=== PATIENT | female | born 1960 | race African-American/Black ===

== ENCOUNTER 2016-10-10 19:19 | Emergency (ER) | payer OTHER ==
[~2016-10-10] VITALS: Ht 177.8 cm; Wt 102.0 kg
[~2016-10-10 19:19] MED LIST: Aleve PO; Aspirin E.C. PO; CRESTOR40 MG PO; Duragesic TD; Flexeril PO; GLUMETZA500 MG PO; Glucophage XR,Fortam PO; JANUVIA100 MG PO; LYRICA75 MG PO; MOBIC7.5 MG PO; NORCO 5/3251 TABLET PO; NUCYNTA50 MG PO; NexIUM PO; Roxicet,Percocet 5/3 PO
[2016-10-10 21:57] LABS: HEMATOCRIT 44.4 % (36.0-46.0); MCH 28.3 PG (29.0-34.0); MCHC 32.7 G/DL (30.0-36.0); MCV 86.5 FL (83-99); MEAN PLAT.VOLUME 9.6 uM^3 (9.5-12.4); PLATELET COUNT 227 K/uL (156-360); RBC DIS.WIDTH-CV 13.2 % (11.8-14.6); RBC DIS.WIDTH-SD 41.3 % (39-53); RED BLOOD COUNT 5.13 M/uL (3.80-5.20); WHITE BLOOD COUNT 6.2 K/uL (4.1-10.2)
[2016-10-10 22:11] LABS: CHLORIDE 106 mEq/L (99-109); POTASSIUM 4.2 mEq/L (3.7-5.4); SODIUM 139 mEq/L (136-147)
[2016-10-10 22:12] LABS: PROTHROMBIN TIME 10.3 (9.2-11.2); PTT 27.4 (25-32)
[2016-10-10 22:13] LABS: GLUCOSE 117 mg/dL (70-99)
[2016-10-10 22:14] LABS: ANION GAP 10 MEQ/L (2-14)
[2016-10-10 22:17] LABS: GFR ESTIMATE (CALCULATED) > 59 mL/min/
[2016-10-10 22:18] LABS: UREA NITROGEN (BUN) 15 mg/dL (9-23)
[2016-10-11 01:32] VITALS: BP 117/67
== END 2016-10-11 02:07 | disposition designated cancer center or children's hospital, planned readmission (85) ==
LOC: EME 19:19
PROVIDERS: Emergency Medicine
DX: T24.232A Burn of second degree of left lower leg, initial encounter (principal); T24.231A Burn of second degree of right lower leg, initial encounter; T31.10 Burns involving 10-19% of body surface with 0% to 9% third degree burns; X03.0XXA Exposure to flames in controlled fire, not in building or structure, initial encounter; E11.9 Type 2 diabetes mellitus without complications; Z79.84 Long term (current) use of oral hypoglycemic drugs
CPT/HCPCS: 80048; 85027; 85610; 85730; 99281; 99284; J2270; J3010; J7030; J7050

== ENCOUNTER 2016-10-18 16:19 | Emergency (ER) | payer OTHER ==
[~2016-10-18] VITALS: Ht 177.8 cm; Wt 101.5 kg
[2016-10-18] MEDS ORDERED: MORPHINE SULFAT15 MG PO (17:26)
[2016-10-18] MEDS ORDERED: ZOFRAN4 MG PO (17:26)
[2016-10-18 19:27] VITALS: BP 111/83
== END 2016-10-18 19:28 | disposition home or self-care (01) ==
LOC: EME 16:19
DX: T24.201D Burn of second degree of unspecified site of right lower limb, except ankle and foot, subsequent encounter (principal); T24.202D Burn of second degree of unspecified site of left lower limb, except ankle and foot, subsequent encounter; X08.8XXD Exposure to other specified smoke, fire and flames, subsequent encounter; R11.0 Nausea; E11.9 Type 2 diabetes mellitus without complications; Z79.84 Long term (current) use of oral hypoglycemic drugs; Z79.82 Long term (current) use of aspirin
CPT/HCPCS: 99281; 99285; J1885; J2405; J3010